=== PATIENT | male | born 1950 | race Caucasian/White ===

== ENCOUNTER 2020-07-19 11:54 | Emergency (ER) | payer MEDICARE, BC ==
[2020-07-19 12:04] VITALS: BP 151/80
--- NOTE | 2020-07-19 13:00 | ED Physician Documentation ---
PD HPI ABD PAIN - Stated complaint Stated Complaint: ABD/BACK PX - Chief complaint Chief Complaint: Abd Pain - History obtained from History obtained from: Patient - Additional information Additional information: 70-year-old gentleman with history of BPH presents with urinary retention not able to urinate since last night. Suprapubic pain without flank pain or fevers. Has a history of this once with concomitant UTI. Review of Systems Constitutional: denies: Fever, Chills GI: denies: Nausea, Vomiting, Diarrhea : reports: Hesitancy, Unable to Void. denies: Incontinent, Hematuria PD PAST MEDICAL HISTORY - Present Medications Home Medications: Ambulatory Orders Medication Instructions Recorded Confirmed Multivitamin 1 tab PO DAILY 07/19/20 07/19/20 Nebivolol HCl [Bystolic] 1 tab PO DAILY 07/19/20 07/19/20 Tamsulosin [Flomax] 1 tab PO DAILY 07/19/20 07/19/20 amLODIPine [Norvasc] 1 tab PO DAILY 07/19/20 07/19/20 - Allergies Allergies/Adverse Reactions: Allergies Allergy/AdvReac Type Severity Reaction Status Date / Time No Known Drug Allergies Allergy Verified 07/19/20 12:04 PD ED PE NORMAL - Vitals Vital signs reviewed: Yes - General General: Alert and oriented X 3, No acute distress - Abdomen Abdomen: Soft, Non tender - Neuro Neuro: Alert and oriented X 3, Normal speech Results - Vitals Vitals: Vital Signs - 24 hr 07/19/20 07/19/20 12:01 12:50 Temperature 36.1 C L 36.1 C L Heart Rate 96 96 Respiratory 18 18 Rate Blood Pressure 151/80 H 151/80 H O2 Saturation 99 99 Oxygen O2 Source Room air - Labs Labs: Laboratory Tests 07/19/20 13:07 Urine Color YELLOW Urine Clarity CLEAR Urine pH 6.0 Ur Specific [place] 1.025 Urine Protein NEGATIVE Urine Glucose (UA) NEGATIVE Urine Ketones NEGATIVE Urine Occult Blood MODERATE H Urine Nitrite NEGATIVE Urine Bilirubin NEGATIVE Urine Urobilinogen 0.2 (NORMAL) Ur Leukocyte Esterase NEGATIVE Urine RBC 6-10 H Urine WBC 0-3 Ur Squamous Epith Cells NONE SEEN Urine Bacteria None Seen Ur Microscopic Review INDICATED Urine Culture Comments NOT INDICATED PD MEDICAL DECISION MAKING - ED course ED course: 70-year-old gentleman with recurrent urinary retention, [place] was placed, about 7 or 800 mL of urine came out. No sign of infection. Switched over to a leg bag and advised follow-up on return home noting he lives in [place] in a few days. Departure - Departure Disposition: 01 Home, Self Care Clinical Impression: Urinary retention Condition: Good Record reviewed to determine appropriate education?: Yes Instructions: ED Catheter Care [place], ED Retention Urinary Male Comments: Continue Flomax/tamsulosin, follow-up with your doctor on return home in 3 to 5 days for recheck, catheter removal, voiding trial. Return if worse.
[2020-07-19 13:30] LABS: BILIRUBIN,URINE NEGATIVE (NEGATIVE); GLUCOSE, URINE (UA) NEGATIVE (NEGATIVE); KETONES,URINE (UA) NEGATIVE (NEGATIVE); LEUKOCYTE ESTERASE, URINE NEGATIVE (NEGATIVE); NITRITE,URINE NEGATIVE (NEGATIVE); OCCULT BLOOD,URINE MODERATE (NEGATIVE); PROTEIN,URINE NEGATIVE (NEGATIVE); UROBILINOGEN,URINE 0.2 (NORMAL) E.U./dL (NORMAL)
[2020-07-19 13:31] LABS: CLARITY,URINE CLEAR (CLEAR)
[2020-07-19 13:44] LABS: BACTERIA,URINE None Seen /HPF (None Seen); SQUAMOUS EPITHELIAL CELL,UR NONE SEEN (<= Few); WBC,URINE 0-3 /HPF (0-3)
== END 2020-07-19 14:05 | disposition home or self-care (01) ==
LOC: ED 11:54
DX: N40.1 Benign prostatic hyperplasia with lower urinary tract symptoms (principal); R33.8 Other retention of urine; R39.11 Hesitancy of micturition
CPT/HCPCS: 51702; 81001; 81003; 87086; 99283